=== PATIENT | male | born 1960 | race Caucasian/White ===

== ENCOUNTER 2021-03-25 18:18 | Inpatient (IN) | payer OTHER ==
[~2021-03-25 18:18] MED LIST: Heparin 10,000 UNITS/ 10 ML VIAL ONE; Lidocaine 1% (PF) 30 ML VIAL ONE; Nitroglycerin 50 MG/250 ML BOT 250 ML ONE
[2021-03-25] MEDS ORDERED: Fentanyl 100 MCG/2 ML VIAL ONE (18:24)
[2021-03-25] MEDS ORDERED: Atropine Sulfate 0.4 mg/1 ml Vial ONE (18:25)
[2021-03-25] MEDS ORDERED: Adenosine 6 MG/2 ML VIAL ONE (18:25)
[2021-03-25] MEDS ORDERED: Midazolam HCl 2 mg/2 ml Vial ONE (18:25)
[2021-03-25] MEDS ORDERED: Clopidogrel Bisulfate 300 MG TAB ONE (19:33)
[2021-03-25] MEDS ORDERED: Acetaminophen/Codeine 30-300mg Tablet PO PRN (19:48)
[2021-03-25] MEDS ORDERED: Nitroglycerin 0.4 MG TAB (25 Tab Bottle) SL PRN (19:48)
[2021-03-25] MEDS ORDERED: Milk Of Magnesia 30 ML UDCUP PO PRN (19:48)
[2021-03-25] MEDS ORDERED: Morphine 4 MG/ML VIAL SLOW IVP PRN (19:48)
[2021-03-25 20:26] VITALS: BMI 29.7
[2021-03-25 21:02] LABS: Troponin I 57.452 ng/mL (< 0.028)
[2021-03-25] MEDS: Sodium Chloride 0.9% 1,000 ML IV SCH (21:36)
[2021-03-25] MEDS: Atorvastatin Calcium 40 MG TAB PO SCH (21:36)
[2021-03-25] MEDS: Metoprolol Tartrate 25 MG TAB PO SCH (21:36)
[2021-03-26 02:27] LABS: #Basophils 0.1 10x3/uL (0.0-0.2); #Eosinphils 0.1 10x3/uL (0.0-0.5); #Monocytes 1.3 10x3/uL (0.0-1.1); #Neutrophils 11.6 10x3/uL (1.5-8.4); %Basophils 0.6 % (0.0-2.0); %Eosinophils 0.7 % (0.0-6.0); %Lymphocytes 18.3 % (18.0-47.0); %Monocytes 7.8 % (0.0-10.0); %Neutrophils 72.4 % (40.0-75.0); Hemoglobin 14.9 g/dL (13.5-17.5); Mean Corpuscular HGB CONC 33.9 g/dL (32.0-36.0); Mean Corpuscular Hemoglobin 31.9 pg (27.0-33.0); Mean Platelet Volume 10.2 fl (7.4-10.4); Platelet Count 300 10x3/uL (150-450); RBC Distribution Width 14.6 % (11.5-14.5); Red Blood Cell (RBC) Count 4.67 10x6/uL (4.32-5.72); White Blood Cell (WBC) Count 16.1 10x3/uL (3.5-10.5)
[2021-03-26 02:44] LABS: ALT (SGPT) 60 U/L (8-55); AST (SGOT) 276 U/L (5-34); Albumin 3.8 g/dL (3.5-5.0); Alkaline Phosphatase 117 U/L (40-110); Anion Gap 14 mmol/L (10-20); BUN (Urea Nitrogen) 12 mg/dL (8.4-25.7); Bilirubin, Total 0.5 mg/dL (0.2-1.2); Calc. Creatinine Clearance 136 mL/min (70-130); Calcium 8.8 mg/dL (7.8-10.44); Carbon Dioxide 23 mmol/L (22-29); Cardiac Risk 5.3 (Less than 4.5); Chloride 105 mmol/L (98-107); Cholesterol 229 mg/dl (< 200 Desired); Globulin 3.3 g/dL (2.4-3.5); Glucose 117 mg/dL (70-105); HDL Cholesterol 43 mg/dL (>60 Neg Risk); LDL Cholesterol, Calculated 156 mg/dL; Potassium 3.8 mmol/L (3.5-5.1); Protein, Total 7.1 g/dL (6.0-8.3); Sodium 138 mmol/L (136-145); Triglycerides 148 mg/dL (Less than 150)
[2021-03-26 03:10] LABS: Troponin I 130.225 ng/mL (< 0.028)
[2021-03-26] MEDS: Sodium Chloride 0.9% 1,000 ML IV SCH ×2 (05:53→16:42)
[2021-03-26] MEDS: Metoprolol Tartrate 25 MG TAB PO SCH ×2 (08:01→20:24)
[2021-03-26] MEDS: Aspirin Chewable 81 MG TAB PO SCH (08:01)
[2021-03-26] MEDS: Clopidogrel Bisulfate 75 MG TAB PO SCH (08:01)
[2021-03-26] MEDS ORDERED: FLU VACC QS2021-22(6MOS UP)/PF 60 MCG/0.5 ML SYRINGE IM ONE (09:00)
[2021-03-26 12:07] LABS: Hemoglobin A1c 5.7 % (4.0-6.0)
[2021-03-26] MEDS: Atorvastatin Calcium 40 MG TAB PO SCH (20:24)
[2021-03-27] MEDS: Clopidogrel Bisulfate 75 MG TAB PO SCH (07:53)
[2021-03-27] MEDS: Aspirin Chewable 81 MG TAB PO SCH (07:53)
[2021-03-27] MEDS: Metoprolol Tartrate 25 MG TAB PO SCH (07:53)
[2021-03-27 11:11] LABS: ALT (SGPT) 42 U/L (8-55); AST (SGOT) 90 U/L (5-34); Albumin 3.6 g/dL (3.5-5.0); Alkaline Phosphatase 104 U/L (40-110); Anion Gap 10 mmol/L (10-20); BUN (Urea Nitrogen) 11 mg/dL (8.4-25.7); Bilirubin, Total 0.5 mg/dL (0.2-1.2); Calc. Creatinine Clearance 124 mL/min (70-130); Calcium 8.8 mg/dL (7.8-10.44); Carbon Dioxide 29 mmol/L (22-29); Chloride 103 mmol/L (98-107); Globulin 3.4 g/dL (2.4-3.5); Glucose 98 mg/dL (70-105); Potassium 3.9 mmol/L (3.5-5.1); Sodium 138 mmol/L (136-145)
== END 2021-03-27 17:06 | disposition home or self-care (01) | DRG 247 ==
LOC: CSHCCL 18:18 → CSHICU 20:18
PROVIDERS: ADMIT Specialist; ATTEND Specialist
PROC: 027135Z Dilation of Coronary Artery, Two Arteries with Two Drug-eluting Intraluminal Devices, Percutaneous Approach (ICD-10-PCS; principal; 2021-03-25)
PROC: 4A023N7 Measurement of Cardiac Sampling and Pressure, Left Heart, Percutaneous Approach (ICD-10-PCS; 2021-03-25)
PROC: B2111ZZ Fluoroscopy of Multiple Coronary Arteries using Low Osmolar Contrast (ICD-10-PCS; 2021-03-25)
PROC: B2151ZZ Fluoroscopy of Left Heart using Low Osmolar Contrast (ICD-10-PCS; 2021-03-25)
DX: I21.11 ST elevation (STEMI) myocardial infarction involving right coronary artery (principal); I25.10 Atherosclerotic heart disease of native coronary artery without angina pectoris; E78.5 Hyperlipidemia, unspecified; Z90.81 Acquired absence of spleen; Z87.09 Personal history of other diseases of the respiratory system
CPT/HCPCS: 36415; 80053; 80061; 83036; 84484; 85025; 92929; 92941; 92978; 92979; 93005; 93010; 93458; 94760; 97139; C1753; C1874; C1887; C9601; C9606; J0153; J0461; J1644; J2001; J2250; J3010; J7050